=== PATIENT | female | born 1990 | race Caucasian/White ===

== ENCOUNTER 2023-03-06 22:58 | Emergency (ER) | payer OTHER, SELFPAY ==
[2023-03-06 23:02] VITALS: BP 114/86; PULSE 67; RESP 18; TEMP 37.2; O2SAT 100; BMI 25.1
--- NOTE | 2023-03-06 23:46 | ED.GENADULT ---
HPI - General Adult General Chief complaint: General Medical Stated complaint: Sore throat Time Seen by Provider: 03/06/23 23:19 Source: patient Mode of arrival: ambulatory History of Present Illness HPI narrative: 32-year-old female with concerns that she may have peritonsillar abscess due to persistent sore throat and feeling like she may have a mass under the flap . Denies any fevers or chills. Related Data Allergies Allergy/AdvReac Type Severity Reaction Status Date / Time No Known Allergies Allergy Unverified 10/08/22 09:17 Review of Systems Review of Systems: Pertinent positives and negatives as stated in [facility] Past Medical History Source: nursing notes reviewed Social History Social History Advance Directives: No Advance Directives Information Provided: Yes Physical Exam ED Vital Signs: Vital Signs - 24 hr 03/06/23 23:02 Temperature 98.9 F Pulse Rate 67 Respiratory Rate 18 Blood Pressure 114/86 Pulse Oximetry 100 Oxygen Delivery Method Room Air BMI result Body Mass Index 25.1 VITAL SIGNS: Reviewed. GENERAL: Well developed, well nourished, in no acute distress. HEAD: Normocephalic/atraumatic EYES: PERRLA, EOMI EARS: Ext canals without abnormality, TMs non-bulging and non-erythematous NOSE: Nares patent bilateral OROPHARYNX: no oral lesions noted, posterior pharynx clear and non-erythematous without noted tonsillar enlargement/erythema/exudates, no uvular deviation and no obvious tonsillar elevation, no trismus NECK: Supple, no adenopathy LUNGS: Normal breath sounds. No adventitious sounds or accessory muscle use. SpO2<100> CARDIOVASCULAR: Regular rate and rhythm without noted murmurs ABDOMEN: Soft, non-tender, non-distended with bowel sounds. MUSCULOSKELETAL: No tenderness, deformities, or effusions noted on gross inspection. EXTREMITIES: No cyanosis, clubbing or edema. SKIN: Inspection of the skin reveals no rashes NEUROLOGIC: Alert and oriented x 4. Strength and sensation to light touch were grossly intact x 4. Medical Decision Making Medical Decision Making [facility] Narrative: 32-year-old female with history and clinical presentation consistent with possible postnasal drip or pain from snoring or possible viral etiology. I reviewed all investigations and my interpretation remains the same. She is otherwise discharged home with instructions to follow-up with primary care provider. Differential Diagnosis Please see the discussion above Lab Data Please see the discussion above Labs: Lab Results 03/06/23 03/06/23 Range/Units 23:48 23:48 Monoscreen Negative (Negative) S. pyogenes GrpA JUVENAL Negative (Negative) Discharge Plan Discharge Clinical Impression: Sore throat Patient Disposition: Home, Self-Care Instructions: Pharyngitis (ED) Additional Instructions: Recommend trying Cepacol throat lozenges for relief of pain. Follow-up with your primary care provider for further evaluation and possible referral to ENT.
[2023-03-07 00:07] LABS: IDNOW Serial# 08D9AD1C; Strep A Nucleic Acid Negative (Negative)
[2023-03-07 00:11] LABS: Monotest Negative (Negative)
== END 2023-03-07 00:43 | disposition home or self-care (01) ==
PROVIDERS: Emergency Provider Student in an Organized Health Care Education/Training Program
DX: J02.9 Acute pharyngitis, unspecified (principal)
CPT/HCPCS: 86308; 87651; 99282; 99283

== ENCOUNTER 2023-03-23 15:43 | Outpatient (REF) | payer OTHER, SELFPAY | END 2023-03-23 15:44 | disposition home or self-care (01) | LOC: HO.HMGCX 15:43 | PROVIDERS: Visit Provider Internal Medicine | DX: S80.02XA Contusion of left knee, initial encounter (principal) | CPT/HCPCS: 73564 ==